=== PATIENT | female | born 1960 | race Caucasian/White ===

== ENCOUNTER 2016-04-13 12:54 | Outpatient (RCR) | payer OTHER ==
--- OUTSIDE RECORDS SUMMARY | 2016-04-13 12:58 | XMS REPORT | Continuity of Care Document ---
Author Author [facility] Organization [facility] Address Unknown Phone Unavailable Care Team Providers Care Prime Broker Name Role Phone HENRY TIM DO PCP Insurance Providers Payer Name Policy Number Subscriber Name Relationship [employer] [id number] Ilana Lewis Self / Same As Patient Problems No problem information available. Medications No medication information available. Social History Social History Problem Response Recorded Date/Time Recent Foreign Travel No 04/09/2016 1:49pm Hospital Discharge Instructions Current inpatient/outpatient. Discharge instructions are currently unavailable. Plan of Care Prescriptions Functional Status No functional status results. Allergies, Adverse Reactions, Alerts No known allergies. Immunizations No immunization records. Vital Signs No known vital signs results. Results Laboratory Results Test Name Result Units Flags Reference Collection Date/Time Result Date/ Time Comments White Blood Count 7.0 10^3/uL 4.3-11.0 04/09/2016 12:11pm 04/09/2016 12 :15pm Red Blood Count 4.54 10^6/uL 4.35-5.85 04/09/2016 12:11pm 04/09/2016 12 :15pm Hemoglobin 13.9 G/DL 11.5-16.0 04/09/2016 12:11pm 04/09/2016 12:15pm Hematocrit 41 % 35-52 04/09/2016 12:11pm 04/09/2016 12:15pm Mean Corpuscular Volume 90 FL 80-99 04/09/2016 12:1104/09/2016 12: 15pm Mean Corpuscular Hemoglobin 31 PG 25-34 04/09/2016 12:04/09/2016 12:15pm Mean Corpuscular Hemoglobin Concent 34 G/DL 32-36 04/09/2016 12: 12:15pm Red Cell Distribution Width 13.2 % 10.0-14.5 04/09/2016 12:2015 12:15pm Platelet Count 194 10^3/uL 130-400 04/09/2016 12:04/09/2016 12: 15pm Mean Platelet Volume 9.4 FL 7.4-10.4 04/09/2016 12:04/09/2016 12: 15pm Neutrophils (%) (Auto) 59 % 42-75 04/09/2016 12:04/09/2016 12: 15pm Lymphocytes (%) (Auto) 29 % 12-44 04/09/2016 12:04/09/2016 12: 15pm Monocytes (%) (Auto) 10 % 0-12 04/09/2016 12:04/09/2016 12:15pm Eosinophils (%) (Auto) 2 % 0-10 04/09/2016 12:04/09/2016 12:15pm Basophils (%) (Auto) 1 % 0-10 04/09/2016 12:04/09/2016 12:15pm Neutrophils # (Auto) 4.1 X 10^3 1.8-7.8 04/09/2016 12:04/09/2016 12:15pm Lymphocytes # (Auto) 2.0 X 10^3 1.0-4.0 04/09/2016 12:04/09/2016 12:15pm Monocytes # (Auto) 0.7 X 10^3 0.0-1.0 04/09/2016 12:04/09/2016 12: 15pm Eosinophils # (Auto) 0.1 10^3/uL 0.0-0.3 04/09/2016 12:04/09/2016 12:15pm Basophils # (Auto) 0.1 10^3/uL 0.0-0.1 04/09/2016 12:04/09/2016 12 :15pm Sodium Level 140 MMOL/L 135-145 04/09/2016 12:04/09/2016 12:48pm Potassium Level 4.2 MMOL/L 3.6-5.0 04/09/2016 12:04/09/2016 12: 48pm Chloride Level 110 MMOL/L H 98-107 04/09/2016 12:04/09/2016 12:48pm Carbon Dioxide Level 23 MMOL/L 21-32 04/09/2016 12:04/09/2016 12: 48pm Anion Gap 7 MMOL/L 5-14 04/09/2016 12:04/09/2016 12:48pm Blood Urea Nitrogen 16 MG/DL 7-18 04/09/2016 12:04/09/2016 12: 48pm Creatinine 0.80 MG/DL 0.60-1.30 04/09/2016 12:04/09/2016 12:48pm BUN/Creatinine Ratio 20 04/09/2016 12:04/09/2016 12:48pm Estimat Glomerular Filtration Rate > 60 04/09/2016 12:2015 12:48pm GFR INTERPRETIVE DATA UNITS FOR ESTIMATED GFR (eGFR): mL/min/1.73 M2 REFERENCE RANGE FOR ESTIMATED GFR (eGFR) eGFR NORMAL eGFR >60 MODERATELY DECREASED eGFR 30-59 SEVERLY DECREASED eGFR 15-29 KIDNEY FAILURE <15 (OR DIALYSIS) Glucose Level 104 MG/DL 70-105 04/09/2016 12:04/09/2016 12:48pm Calcium Level 9.0 MG/DL 8.5-10.1 04/09/2016 12:04/09/2016 12:48pm Total Bilirubin 0.5 MG/DL 0.1-1.0 04/09/2016 12:04/09/2016 12: 48pm Alkaline Phosphatase 74 U/L 40-136 04/09/2016 12:04/09/2016 12: 48pm Aspartate Amino Transf (AST/SGOT) 47 U/L H 5-34 04/09/2016 12:2015 12:48pm Alanine Aminotransferase (ALT/SGPT) 43 U/L 0-55 04/09/2016 12: 12:48pm Total Protein 6.6 G/DL 6.4-8.2 04/09/2016 12:11pm 04/09/2016 12:48pm Albumin 3.6 G/DL 3.2-4.5 04/09/2016 12:11pm 04/09/2016 12:48pm Ferritin 136 ng/mL 15-150 01/19/2016 11:56am 01/20/2016 7:12am Test performed at [facility], CLIA# [id number] [place] [address] Iron Level 156 ug/dL 35-180 01/19/2016 11:56am 01/20/2016 7:12am Transferrin % Saturation 36 % 15-50 01/19/2016 11:56am 01/20/2016 7: 12am Total Iron Binding Capacity 437 ug/dL H 280-380 01/19/2016 11:56am 2015 7:12am Unsaturated Iron Binding Capacity 281 ug/dL 55-450 01/19/2016 11:56am 01/20/2016 7:12am Test performed at [facility], CLIA# [id number] Pending Laboratory Results Test Name Collection Date/Time Procedures Procedure Status Date Provider(s) Color Doppler echocardiography Active 04/09/16 OLIVIER COOMSB MD, FACP, FACC CCDS 48 hour Holter monitoring Completed 04/09/16 OLIVIER COOMBS MD, FACP, FACC CCDS 48 hour Holter monitoring Completed 04/09/16 OLIVIER COOMBS MD, FACP FACYanna CCDS Encounters Encounter Location Arrival/Admit Date Discharge/Depart Date Attending Provider Registered Clinic [facility] 04/09/16 1:51pm OLIVIER COOMBS FACP, MD, FACC Registered Clinic [facility] 04/09/16 11:53am OLIVIER COOMBS FACP, MD, FACC Discharged Recurring [facility] 04/09/16 11:49am 9:28am CRUZITO RIZVI MD
== END 2016-07-12 | disposition home or self-care (01) ==
LOC: ONC 12:54
PROVIDERS: ATTEND Internal Medicine Hematology & Oncology
DX: E83.119 Hemochromatosis, unspecified (principal); K75.81 Nonalcoholic steatohepatitis (NASH); D75.1 Secondary polycythemia; E87.6 Hypokalemia; E11.9 Type 2 diabetes mellitus without complications; E78.5 Hyperlipidemia, unspecified; Z85.41 Personal history of malignant neoplasm of cervix uteri; Z90.710 Acquired absence of both cervix and uterus; Z79.899 Other long term (current) drug therapy
CPT/HCPCS: 99213

== ENCOUNTER 2016-08-03 09:32 | Outpatient (RCR) | payer OTHER ==
--- OUTSIDE RECORDS SUMMARY | 2016-08-03 09:35 | XMS REPORT | Continuity of Care Document ---
Author Author [facility] Organization [facility] Address Unknown Phone Unavailable Care Team Providers Care Junior Network Engineer Name Role Phone Merle Hood PCP [phone] Source Comments Some departments are not documenting in the electronic medical record. If you do not see the information that you expected, contact Release of Information in the Health Information Management department at [phone] for further assistance in locating additional records.[facility] Active Allergies and Adverse Reactions No Known Allergies Current Medications Prescription Sig. Disp. Refills Start End Date Status Date furosemide (LASIX) 40 mg Take 40 mg by mouth every Active tablet morning. potassium chloride SR Take 20 mEq by mouth Active (K-DUR) 20 mEq tablet daily. Take with a meal and a full glass of water. canagliflozin (INVOKANA) Take 300 mg by mouth Active 300 mg tablet daily with breakfast. aspirin 81 mg chewable Chew 81 mg by mouth Active tablet daily. Take with food. sAXagliptin-metformin Take by mouth daily. Active (KOMBIGLYZE XR) 5-500 mg TM24 METFORMIN HCL (METFORMIN Take by mouth. Active PO) ALPRAZolam (XANAX) 0.25 Take 12.5 mg by mouth at Active mg tablet bedtime as needed for Anxiety. fluticasone (FLONASE) 50 Apply to each nostril as Active mcg/actuation nasal spray directed daily. Shake bottle gently before using. fluoxetine(+) (PROZAC) 40 Take 40 mg by mouth Active mg capsule daily. triamterene-hydrochloroth Take 1 Cap by mouth every Active iazide (DYAZIDE) 37.5-25 morning. mg capsule amitriptyline (ELAVIL) 25 Take 25 mg by mouth at Active mg tablet bedtime as needed. metoprolol XL (TOPROL XL) Take 25 mg by mouth twice Active 25 mg extended release daily. tablet Active Problems No known active problems Most Recent Encounters Date Type Specialty Providers Description 06/01/2016 Office Visit Neurosurgery Lino Perea MD Cervical stenosis of spinal canal (Primary Dx) 05/31/2016 Abstract Neurosurgery Lino Perea MD Social History Tobacco Use Types Packs/Day Years Used Date Never Smoker Smokeless Tobacco: Never Used Tobacco Cessation: Counseling Given: No Comments: Alcohol Use Drinks/Week oz/Week Comments No Last Filed Vital Signs Vital Sign Reading Time Taken Blood Pressure 122/84 06/01/2016 9:25 AM MODELING DIRECTOR Pulse 77 06/01/2016 9:25 AM MODELING DIRECTOR Temperature 36.5 C (97.7 F) 06/01/2016 9:25 AM MODELING DIRECTOR Respiratory Rate 16 06/01/2016 9:25 AM MODELING DIRECTOR Height 1.727 m (5' 8") 06/01/2016 9:25 AM MODELING DIRECTOR Weight 91.627 kg (202 lb) 06/01/2016 9:25 AM MODELING DIRECTOR Body Mass Index 30.72 06/01/2016 9:25 AM MODELING DIRECTOR Oxygen Saturation 100% 06/01/2016 9:25 AM MODELING DIRECTOR Plan of Care Health Maintenance Due Date Last Done Comments Hepatitis C Screening 1960 Physical (Comprehensive) 11/22/1966 Exam Pertussis Vaccine 11/22/1970 Tetanus Vaccine 11/22/1976 Cervical Cancer Screening 11/22/1980 Breast Cancer Screening 1999 Colorectal Cancer 11/22/2009 Screening Influenza Vaccine 03/11/2016 Results from Last 3 Months Not on file
[2016-08-03 09:53] LABS: BASOPHILS # (AUTO) 0.1 10^3/uL (0.0-0.1); BASOPHILS % (AUTO) 1 % (0-10); EOSINOPHILS # (AUTO) 0.1 10^3/uL (0.0-0.3); EOSINOPHILS % (AUTO) 1 % (0-10); LYMPHOCYTES # (AUTO) 1.7 X 10^3 (1.0-4.0); LYMPHOCYTES % (AUTO) 22 % (12-44); MEAN CORPUSCULAR HEMOGLOBIN 32 PG (25-34); MEAN CORPUSCULAR HGB CONC 35 G/DL (32-36); MEAN CORPUSCULAR VOLUME 92 FL (80-99); MEAN PLATELET VOLUME 9.7 FL (7.4-10.4); MONOCYTES # (AUTO) 0.7 X 10^3 (0.0-1.0); MONOCYTES % (AUTO) 10 % (0-12); NEUTROPHILS # (AUTO) 5.1 X 10^3 (1.8-7.8); NEUTROPHILS % (AUTO) 66 % (42-75); PLATELET COUNT 222 10^3/uL (130-400); RED BLOOD COUNT 4.81 10^6/uL (4.35-5.85); RED CELL DISTRIBUTION WIDTH 13.1 % (10.0-14.5); WHITE BLOOD COUNT 7.7 10^3/uL (4.3-11.0)
[2016-08-03 10:21] LABS: ALANINE AMINOTRANSFERASE 51 U/L (0-55); ALBUMIN 4.2 G/DL (3.2-4.5); ANION GAP 10 MMOL/L (5-14); ASPARTATE AMINO TRANSFERASE 45 U/L (5-34); BILIRUBIN,TOTAL 0.9 MG/DL (0.1-1.0); BLOOD UREA NITROGEN 20 MG/DL (7-18); BUN/CREATININE RATIO 22; CALCIUM 9.6 MG/DL (8.5-10.1); CARBON DIOXIDE 24 MMOL/L (21-32); CHLORIDE 104 MMOL/L (98-107); CREATININE SERUM 0.91 MG/DL (0.60-1.30); GFR ESTIMATED > 60; GLUCOSE 131 MG/DL (70-105); POTASSIUM 3.8 MMOL/L (3.6-5.0); SODIUM 138 MMOL/L (135-145); TOTAL PROTEIN 7.3 G/DL (6.4-8.2)
[2016-08-03 11:28] LABS: %SAT TOTAL IRON BINDING CAPIC 31 % (15-50); TIBC 395 ug/dL (280-380)
[2016-08-04 07:34] LABS: FERRITIN 140 ng/mL (15-150); UIBC 273 ug/dL (55-450)
== END 2016-11-01 | disposition home or self-care (01) ==
LOC: ONC 09:32
PROVIDERS: ATTEND Internal Medicine Hematology & Oncology
DX: E83.119 Hemochromatosis, unspecified (principal); K75.81 Nonalcoholic steatohepatitis (NASH); D75.1 Secondary polycythemia; E87.6 Hypokalemia; E11.9 Type 2 diabetes mellitus without complications; E78.5 Hyperlipidemia, unspecified; Z85.41 Personal history of malignant neoplasm of cervix uteri; Z90.710 Acquired absence of both cervix and uterus; Z79.899 Other long term (current) drug therapy
CPT/HCPCS: 36415; 80053; 82378; 82728; 83540; 85025; 86304

== ENCOUNTER → 2018-05-09 | Outpatient (CLI) | payer BC, OTHER ==
--- NOTE | 2018-05-09 13:59 | Diagnostic Imaging Report ---
INDICATION: Pain in the far lateral right breast. COMPARISON: 09/04/2014 and 02/27/2013. TECHNIQUE: 2D and 3D bilateral diagnostic mammography was performed with CAD. FINDINGS: Scattered fibroglandular densities are identified bilaterally. The parenchymal pattern is stable. No mass or malignant appearing microcalcifications are seen. The axillae are unremarkable. IMPRESSION: No mammographic features suspicious for malignancy are seen. Even so, sonographic interrogation of the area of pain in the far lateral right breast is recommended and will be performed today. ACR BI-RADS Category 0: Incomplete. (Needs additional imaging evaluation). Result letter will be mailed to the patient. Note: At least 10% of breast cancer is not imaged by mammography. Dictated by: Dictated on workstation # [id number]
--- NOTE | 2018-05-09 14:38 | Diagnostic Imaging Report ---
Indication: Right breast pain. Comparison is made with a diagnostic mammogram earlier the same day. Sonographic interrogation of the outer right breast was performed. No sonographic abnormality is seen. No solid or cystic mass is identified. The right axilla is unremarkable. Impression: BI-RADS category 1 No sonographic abnormality is detected. Clinical followup is recommended. ACR BI-RADS Category 1: Negative. Result letter will be mailed to the patient. Note: At least 10% of breast cancer is not imaged by mammography. Dictated by: Dictated on workstation # [id number]
== END ==
LOC: RAD 08:37
PROVIDERS: ATTEND Obstetrics & Gynecology
DX: Z12.31 Encounter for screening mammogram for malignant neoplasm of breast (principal); N64.4 Mastodynia
CPT/HCPCS: 77066

== ENCOUNTER → 2019-11-06 | Outpatient (CLI) | payer BC ==
[2019-11-06 11:49] LABS: BASOPHILS # (AUTO) 0.1 10^3/uL (0.0-0.1); BASOPHILS % (AUTO) 1 % (0-10); EOSINOPHILS # (AUTO) 0.4 10^3/uL (0.0-0.3); EOSINOPHILS % (AUTO) 4 % (0-10); HEMATOCRIT 45 % (35-52); HEMOGLOBIN 15.9 G/DL (11.5-16.0); LYMPHOCYTES # (AUTO) 4.4 X 10^3 (1.0-4.0); LYMPHOCYTES % (AUTO) 41 % (12-44); MEAN CORPUSCULAR HEMOGLOBIN 32 PG (25-34); MEAN CORPUSCULAR HGB CONC 35 G/DL (32-36); MEAN CORPUSCULAR VOLUME 92 FL (80-99); MEAN PLATELET VOLUME 10.3 FL (7.4-10.4); MONOCYTES # (AUTO) 1.1 X 10^3 (0.0-1.0); MONOCYTES % (AUTO) 10 % (0-12); NEUTROPHILS # (AUTO) 4.8 X 10^3 (1.8-7.8); NEUTROPHILS % (AUTO) 45 % (42-75); PLATELET COUNT 190 10^3/uL (130-400); RED CELL DISTRIBUTION WIDTH 12.9 % (10.0-14.5); WHITE BLOOD COUNT 10.7 10^3/uL (4.3-11.0)
[2019-11-06 12:10] LABS: ALANINE AMINOTRANSFERASE 18 U/L (0-55); ALKALINE PHOSPHATASE 61 U/L (40-136); BILIRUBIN,TOTAL 0.8 MG/DL (0.1-1.0); BUN/CREATININE RATIO 29; CALCIUM 9.4 MG/DL (8.5-10.1); CARBON DIOXIDE 20 MMOL/L (21-32); CHLORIDE 104 MMOL/L (98-107); CREATININE SERUM 0.84 MG/DL (0.60-1.30); GFR ESTIMATED > 60; GLUCOSE 110 MG/DL (70-105); POTASSIUM 3.5 MMOL/L (3.6-5.0); SODIUM 137 MMOL/L (135-145); TOTAL PROTEIN 7.1 GM/DL (6.4-8.2)
--- NOTE | 2019-11-06 12:10 | Diagnostic Imaging Report ---
CHEST PA/LAT (2 VIEW) Indication: Shortness of breath Comparison: None available. Findings: No pulmonary mass or consolidation. No pleural effusion or pneumothorax. Normal heart size and mediastinal contours. Impression: No acute cardiopulmonary process. Dictated by: Dictated on workstation # [id number]
== END ==
LOC: RAD 11:11
PROVIDERS: ATTEND Family Medicine
DX: R06.02 Shortness of breath (principal)
CPT/HCPCS: 36415; 71046; 80053; 85025; 85379

== ENCOUNTER → 2020-06-25 | Outpatient (CLI) | payer MEDICARE, OTHER ==
--- NOTE | 2020-06-25 11:37 | Diagnostic Imaging Report ---
Left forearm at 11:01. Indication: Fell, arm pain. AP and lateral views were obtained. There are no prior studies available for comparison. There is no fracture, dislocation or acute bony abnormality evident. There is mild degenerative disease of the radiocarpal and elbow joints. The soft tissues are unremarkable. Impression: There is no evidence for an acute bony abnormality. Dictated by: Dictated on workstation # [id number]
== END ==
LOC: RAD 10:13
PROVIDERS: ATTEND Family Medicine
DX: M79.632 Pain in left forearm (principal)
CPT/HCPCS: 73090

== ENCOUNTER → 2022-01-22 | Outpatient (CLI) | payer MEDICARE, OTHER ==
--- NOTE | 2022-01-22 13:09 | Diagnostic Imaging Report ---
INDICATION: Routine screening. Correlation is made with prior mammogram 05/09/2018 and 09/04/2014. 2-D and 3-D bilateral screening mammography was performed with CAD. Scattered fibroglandular densities are noted bilaterally. The parenchymal pattern is stable. No mass or malignant-appearing microcalcifications are seen. Axillae are unremarkable. IMPRESSION: No mammographic features suspicious for malignancy are identified. ACR BI-RADS Category 1: Negative. Result letter will be mailed to the patient. Note: At least 10% of breast cancer is not imaged by mammography. BI-RADS Category 1 Dictated by: Dictated on workstation # [id number]
== END ==
LOC: RAD 08:00
PROVIDERS: ATTEND Family Medicine
DX: Z12.31 Encounter for screening mammogram for malignant neoplasm of breast (principal)
CPT/HCPCS: 77063; 77067